=== PATIENT | female | born 1980 | race African-American/Black ===

== ENCOUNTER 2018-04-28 13:19 | Emergency (ER) | payer OTHER ==
--- NOTE | 2018-04-28 13:37 | ED Physician Documentation ---
History of Present Illness - Stated complaint Stated Complaint: BLEEDING/6WKS - Chief complaint Chief Complaint: Abd Pain - History obtained from History obtained from: Patient, Family - History of Present Illness Timing: How many days ago (several) Pain level max: 0 Pain level now: 0 Improved by: nothing Worsened by: nothing - Additonal information Additional information: Patient is a 4, para 1 who states that she is approximately 6 weeks . Noticed she started vaginally bleeding over the past several days. States heavier today. 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 - Present Medications Home Medications: Ambulatory Orders Medication Instructions Recorded Confirmed Pnv No.122/Iron/Folic Acid 04/28/18 [ Multi Tablet] - Allergies Allergies/Adverse Reactions: Allergies Allergy/AdvReac Type Severity Reaction Status Date / Time No Known Drug Allergies Allergy Verified 04/28/18 13:28 - Living Situation Living Situation: reports: With family Living Arrangement: reports: At home - Social History Does the pt smoke?: No Smoking Status: Never smoker Does the pt have substance abuse?: No PD ED PE NORMAL - Vitals Vital signs reviewed: Yes - General General: Alert and oriented X 3, No acute distress - HEENT HEENT: Moist mucous membranes - Neck Neck: Supple, no meningeal sign - Cardiac Cardiac: RRR, Strong equal pulses - Respiratory Respiratory: No respiratory distress, Clear bilaterally - Abdomen Abdomen: Soft, Non tender, Non distended - Female Female : Pt declined - Back Back: No CVA TTP - Derm Derm: Warm and dry - Neuro Neuro: Alert and oriented X 3 - Psych Psych: Normal mood, Normal affect Results - Vitals Vitals: Vital Signs - 24 hr 04/28/18 04/28/18 13:26 15:36 Temperature 36.8 C 36.9 C Heart Rate 96 94 Respiratory 18 18 Rate Blood Pressure 134/73 H 132/75 H O2 Saturation 100 100 Oxygen O2 Source Room air - Labs Labs: Laboratory Tests 04/28/18 04/28/18 04/28/18 13:40 14:21 14:21 WBC 6.8 RBC 4.60 Hgb 12.9 Hct 38.6 MCV 83.7 MCH 28.0 MCHC 33.4 RDW 13.2 Plt Count 234 MPV 7.5 L Neut # (Auto) 4.4 Lymph # (Auto) 1.6 Dickens # (Auto) 0.3 Eos # (Auto) 0.4 Baso # (Auto) 0.0 Absolute Nucleated RBC 0.00 Nucleated RBC % 0.0 Sodium Potassium Chloride Carbon Dioxide Anion Gap BUN Creatinine Estimated GFR (MDRD) Glucose Calcium Total Bilirubin AST ALT Alkaline Phosphatase Total Protein Albumin Globulin Albumin/Globulin Ratio Lipase HCG, Quant Urine Color YELLOW Urine Clarity CLEAR Urine pH 6.0 Ur Specific [place] 1.025 Urine Protein NEGATIVE Urine Glucose (UA) NEGATIVE Urine Ketones NEGATIVE Urine Occult Blood SMALL H Urine Nitrite NEGATIVE Urine Bilirubin NEGATIVE Urine Urobilinogen 0.2 (NORMAL) Ur Leukocyte Esterase NEGATIVE Urine RBC 0-5 Urine WBC 0-3 Ur Squamous Epith Cells FEW Squamous Urine Bacteria Rare Ur Microscopic Review INDICATED Urine Culture Comments NOT INDICATED Blood Type B POSITIVE Antibody Screen NEGATIVE 04/28/18 04/28/18 14:21 14:21 WBC RBC Hgb Hct MCV MCH MCHC RDW Plt Count MPV Neut # (Auto) Lymph # (Auto) Dickens # (Auto) Eos # (Auto) Baso # (Auto) Absolute Nucleated RBC Nucleated RBC % Sodium 131 L Potassium 3.8 Chloride 98 L Carbon Dioxide 25 Anion Gap 8.0 BUN 11 Creatinine 0.5 Estimated GFR (MDRD) 170 Glucose 106 H Calcium 9.7 Total Bilirubin 0.5 AST 13 ALT 10 Alkaline Phosphatase 63 Total Protein 7.8 Albumin 4.1 Globulin 3.7 Albumin/Globulin Ratio 1.1 Lipase 31 HCG, Quant 238152.00 Urine Color Urine Clarity Urine pH Ur Specific [place] Urine Protein Urine Glucose (UA) Urine Ketones Urine Occult Blood Urine Nitrite Urine Bilirubin Urine Urobilinogen Ur Leukocyte Esterase Urine RBC Urine WBC Ur Squamous Epith Cells Urine Bacteria Ur Microscopic Review Urine Culture Comments Blood Type Antibody Screen - Rads (name of study) pelvic US Radiology: Prelim report reviewed, EMP read contemporaneously, See rad report ( Intrauterine with a estimated gestational age of 6 weeks and 4 days. heart rate of 122 bpm. Fibroid in the uterine fundus.) PD MEDICAL DECISION MAKING - ED course Complexity details: reviewed results, re-evaluated patient, considered differential, d/w patient, d/w family ED course: Patient is a 37-year-old female who presents to the emergency department with what appears to be a threatened . She does have an intrauterine with a heart rate of approximately 122 bpm. HCG is appropriate. We will have her follow-up with her doctor for further care. She is well-appearing, nontoxic. Afebrile. Patient counseled regarding signs and symptoms for which I believe and urgent re-evaluation would be necessary. Patient with good understanding of and agreement to plan and is comfortable going home at this time This document was made in part using voice recognition software. While efforts are made to proofread this document, sound alike and grammatical errors may occur. Departure - Departure Disposition: 01 Home, Self Care Clinical Impression: Threatened affecting intrauterine Condition: Good Instructions: ED Miscarriage Poss Follow-Up: Provider,Other [Primary Care Provider] - Within 1 week Comments: Your ultrasound shows a single intrauterine that is approximately 6 weeks and 4 days old by crown-rump length. The heart rate is approximately 122 bpm. Your hCG is also normal for this stage in . Please follow-up with your doctor for further evaluation. They may want to repeat an hCG in 3 days if you are still having bleeding. Return if you worsen. Discharge Date/Time: 04/28/18 15:37
[2018-04-28 13:53] LABS: BILIRUBIN,URINE NEGATIVE (NEGATIVE); GLUCOSE, URINE (UA) NEGATIVE (NEGATIVE); KETONES,URINE (UA) NEGATIVE (NEGATIVE); LEUKOCYTE ESTERASE, URINE NEGATIVE (NEGATIVE); NITRITE,URINE NEGATIVE (NEGATIVE); OCCULT BLOOD,URINE SMALL (NEGATIVE); PROTEIN,URINE NEGATIVE (NEGATIVE); UROBILINOGEN,URINE 0.2 (NORMAL) E.U./dL (NORMAL)
[2018-04-28 13:54] LABS: CLARITY,URINE CLEAR (CLEAR)
[2018-04-28 13:57] LABS: BACTERIA,URINE Rare /HPF (None Seen); RBC,URINE 0-5 /HPF (0-5); SQUAMOUS EPITHELIAL CELL,UR FEW Squamous (<= Few)
[2018-04-28 14:32] LABS: BASOPHILS % (AUTO) 0.3 %; EOSINOPHILS # (AUTO) 0.4 10^3/uL (0.0-0.7); EOSINOPHILS % (AUTO) 6.1 %; HGB - HEMOGLOBIN 12.9 g/dL (12.0-16.0); LYMPHOCYTES # (AUTO) 1.6 10^3/uL (1.5-3.5); MEAN CORPUSCULAR HGB CONC 33.4 g/dL (32.0-36.0); MEAN CORPUSCULAR VOLUME 83.7 fL (81.0-99.0); MEAN PLATELET VOLUME 7.5 fL (7.9-10.8); MONOCYTES # (AUTO) 0.3 10^3/uL (0.0-1.0); MONOCYTES % (AUTO) 3.9 %; NEUTROPHILS # (AUTO) 4.4 10^3/uL (1.5-6.6); NEUTROPHILS % (AUTO) 65.7 %; PLT - PLATELET COUNT 234 10^3/uL (130-450); RED CELL DISTRIBUTION WIDTH 13.2 % (12.0-15.0); WHITE BLOOD COUNT 6.8 x10^3/uL (4.8-10.8)
[2018-04-28 14:47] LABS: ALBUMIN 4.1 g/dL (3.2-5.5); ALBUMIN/GLOBULIN RATIO 1.1 (1.0-2.2); BILIRUBIN,TOTAL 0.5 mg/dL (0.2-1.0); CALCIUM 9.7 mg/dL (8.5-10.3); CREATININE 0.5 mg/dL (0.4-1.0); TOTAL PROTEIN 7.8 g/dL (6.7-8.2)
[2018-04-28 15:37] VITALS: BP 132/75
--- NOTE | 2018-04-30 14:47 | Ultrasound Report ---
OB ULTRASOUND: 04/28/2018 CLINICAL INDICATION: Six weeks , spotting. TECHNIQUE: Real-time scanning was performed using the transabdominal and transvaginal technique with kiosk sales representative static images obtained. LAST MENSTRUAL PERIOD: 03/14/2018 Clinical Age: 6 weeks 3 days (LMP) US Age: 6 weeks 4 days EFW Hadlock: -- EFW% Hadlock: -- Heart Rate: 122 bpm EDC: 12/19/2018 (LMP) US EDC: 12/18/2018 (current ultrasound) BPD Hadlock: -- HC Hadlock: -- AC Hadlock: -- FL Hadlock: -- Presentation: -- Placental Location: -- Cervical Length: closed Amniotic Fluid: -- FINDINGS There is a gestational sac in the endometrium, with yolk sac and pole visualized. By crown rump length, the fetus dates 6 weeks 4 days (6 weeks 3 days by LMP). The gestational sac appears regular. No perigestational hemorrhage is identified. The placenta is not visualized due to early dates. There is a right fundal leiomyoma in the uterus, measuring 3.4 x 2.9 x 2.9 cm. The ovaries are normal, with the right measuring 3.5 x 1.9 x 1.6 cm, and the left measuring 3.8 x 2.2 x 1.8 cm. A small amount of free fluid is present. IMPRESSION: SINGLE VIABLE INTRAUTERINE GESTATION, WITH SIZE IN KEEPING WITH LMP DATING. NO PERIGESTATIONAL HEMORRHAGE. SMALL AMOUNT OF FREE FLUID. RIGHT FUNDAL UTERINE LEIOMYOMA. TD: 04/28/2018 15:30 [facility]
== END 2018-04-28 15:37 | disposition home or self-care (01) ==
LOC: ED 13:19
DX: O20.0 Threatened abortion (principal); D25.9 Leiomyoma of uterus, unspecified; Z3A.01 Less than 8 weeks gestation of pregnancy
CPT/HCPCS: 36415; 76801; 76817; 76830; 80053; 81001; 81003; 83690; 84702; 85025; 86850; 86900; 86901; 87086; 99283

== ENCOUNTER 2019-04-30 08:22 | Emergency (ER) | payer OTHER ==
[2019-04-30 08:47] LABS: BILIRUBIN,URINE NEGATIVE (NEGATIVE); GLUCOSE, URINE (UA) NEGATIVE (NEGATIVE); KETONES,URINE (UA) NEGATIVE (NEGATIVE); LEUKOCYTE ESTERASE, URINE NEGATIVE (NEGATIVE); NITRITE,URINE NEGATIVE (NEGATIVE); OCCULT BLOOD,URINE MODERATE (NEGATIVE); PROTEIN,URINE 30 mg/dL (NEGATIVE); UROBILINOGEN,URINE 0.2 (NORMAL) E.U./dL (NORMAL)
[2019-04-30] MEDS ORDERED: IBUPROFEN 600 MG TABLET PO STA (08:48)
[2019-04-30 08:54] LABS: CLARITY,URINE CLEAR (CLEAR)
[2019-04-30 08:57] LABS: HCG UR QUAL NEGATIVE
[2019-04-30 09:05] LABS: BACTERIA,URINE Few /HPF (None Seen); SQUAMOUS EPITHELIAL CELL,UR FEW Squamous (<= Few)
[2019-04-30 09:17] LABS: CALCIUM 9.5 mg/dL (8.5-10.3); CREATININE 0.8 mg/dL (0.4-1.0)
--- NOTE | 2019-04-30 09:57 | ED Physician Documentation ---
PD HPI ABD PAIN - Stated complaint Stated Complaint: BACK PAIN - Chief complaint Chief Complaint: Abd Pain - History obtained from History obtained from: Patient - History of Present Illness Timing - duration: Days (2) Timing - details: Abrupt onset Pain level max: 5 Quality: Aching, Sharp, Stabbing Location: Other (left flank radiating to L groin) Radiation: (left groin), Left flank Associated symptoms: Hematuria. No: Fever, Nausea, Vomiting, Hematemesis, Diarrhea, Dysuria, Near syncope / syncope, Loss of appetite, Vaginal bleeding, Vaginal dc Similar symptoms before: Has not had sx before Recently seen: Not recently seen - Treatment prior to arrival Treatment prior to arrival: none Review of Systems Constitutional: denies: Fever, Chills Cardiac: denies: Chest pain / pressure Respiratory: denies: Dyspnea GI: reports: Abdominal Pain, Nausea. denies: Vomiting : reports: Hesitancy, Hematuria. denies: Dysuria, Frequency, Discharge Skin: denies: Rash Musculoskeletal: reports: Back pain Neurologic: denies: Generalized weakness, Focal weakness, Numbness PD PAST MEDICAL HISTORY - Past Medical History Past Medical History: Yes FLYER BUILDER: Endometriosis - Past Surgical History Past Surgical History: No /FLYER BUILDER: section - Present Medications Home Medications: Ambulatory Orders Medication Instructions Recorded Confirmed Pnv No.122/Iron/Folic Acid 04/28/18 [ Multi Tablet] Oxycodone HCl/Acetaminophen 1 - 2 each PO Q6H PRN #14 tablet 04/30/19 [Percocet 5-325 mg Tablet] - Allergies Allergies/Adverse Reactions: Allergies Allergy/AdvReac Type Severity Reaction Status Date / Time No Known Drug Allergies Allergy Verified 04/28/18 13:28 - Social History Does the pt smoke?: No Smoking Status: Never smoker Does the pt drink ETOH?: No Does the pt have substance abuse?: No - Immunizations Immunizations are current?: Yes PD ED PE NORMAL - Vitals Vital signs reviewed: Yes - General General: Alert and oriented X 3 - HEENT HEENT: Atraumatic - Neck Neck: Supple, no meningeal sign - Cardiac Cardiac: RRR, No murmur - Respiratory Respiratory: No respiratory distress - Abdomen Abdomen: Normal bowel sounds, Soft, Non tender, Non distended - Female Female : Deferred - Rectal Rectal: Deferred - Back Back: Other (mild L cva tenderness) - Derm Derm: Normal color, Warm and dry, No rash - Extremities Extremities: No deformity - Neuro Neuro: Alert and oriented X 3 Eye Opening: Spontaneous Motor: Obeys Commands Verbal: Oriented GCS Score: 15 - Psych Psych: Normal mood, Normal affect PD ED PE EXPANDED - Abdomen Abdomen: No: Distended, Tender to palpation, Rebound, Guarding Results - Vitals Vitals: Vital Signs - 24 hr 04/30/19 04/30/19 08:30 10:13 Temperature 35.7 C L Heart Rate 76 Respiratory 18 16 Rate Blood Pressure 131/91 H O2 Saturation 98 Oxygen O2 Source Room air - Labs Labs: Microbiology 04/30/19 08:31 Urine Culture - Final Urine,Clean Catch NO AEROBIC GROWTH AT 24 HOURS Laboratory Tests 04/30/19 04/30/19 08:31 08:58 Sodium 140 Potassium 3.5 Chloride 105 Carbon Dioxide 25 Anion Gap 10.0 BUN 12 Creatinine 0.8 Estimated GFR (MDRD) 98 Glucose 98 Calcium 9.5 Urine Color YELLOW Urine Clarity CLEAR Urine pH 6.0 Ur Specific [place] 1.020 Urine Protein 30 H Urine Glucose (UA) NEGATIVE Urine Ketones NEGATIVE Urine Occult Blood MODERATE H Urine Nitrite NEGATIVE Urine Bilirubin NEGATIVE Urine Urobilinogen 0.2 (NORMAL) Ur Leukocyte Esterase NEGATIVE Urine RBC 11-25 H Urine WBC 6-10 H Ur Squamous Epith Cells FEW Squamous Urine Bacteria Few Ur Microscopic Review INDICATED Urine Culture Comments INDICATED Urine HCG, Qual NEGATIVE normal renal function, blood in urine, no UTI Procedures - Bedside sono Bedside sono by EMP: Bilateral renal ultrasounds show L sided mild hydronephrosis. Normal R kidney. PD MEDICAL DECISION MAKING - ED course Complexity details: reviewed results, re-evaluated patient, considered di fferential, d/w patient ED course: ddx - UTI, pyelonephritis, AAA, kidney stone. 38 y/o F with acute onset of L flank pain radiating to the L groin with hematuria. No UTI here. US confirmed mild hydronephrosis and UA with blood. This is clinically consistent with a stone. However pt's pain controlled with ibuprofen and she is healthy and stable for discharge and outpt f/u. Given return precautions if new cocerning or worsening symptoms. Departure - Departure Disposition: 01 Home, Self Care Clinical Impression: Kidney stone on left side Condition: Stable Instructions: ED Stone Renal W Colic Follow-Up: Mary Redman MD [Provider Admit Priv/Credential] - (within 1 to 2 weeks to recheck your symptoms) Prescriptions: Oxycodone HCl/Acetaminophen [Percocet 5-325 mg Tablet] 1 - 2 each PO Q6H PRN #14 tablet PRN Reason: pain Print Language: [place]an Comments: Your kidney function was normal here. your labs and urine sample were normal except for blood in your urine suggestive of a kidney stone. You have mild hydronephrosis of your left kidney on Ultrasound also consistent with a kidney stone. You can taken tylenol or ibuprofen for pain and percocet if pain is severe. Return to the ED if worsening symptoms, fever, or pain. Discharge Date/Time: 04/30/19 10:15
[2019-04-30 10:15] VITALS: BP 131/91
== END 2019-04-30 10:15 | disposition home or self-care (01) ==
LOC: ED 08:22
DX: N13.2 Hydronephrosis with renal and ureteral calculous obstruction (principal)
CPT/HCPCS: 36415; 80048; 81001; 81025; 87086; 99283; 99284; A9270; 81003

== ENCOUNTER 2019-05-24 09:02 | Emergency (ER) | payer OTHER ==
--- NOTE | 2019-05-24 09:20 | ED Physician Documentation ---
History of Present Illness - Stated complaint Stated Complaint: SIDE PX - Chief complaint Chief Complaint: General - History obtained from History obtained from: Patient - Additonal information Additional information: Patient is a previously healthy 39-year-old female presenting with persistent bilateral flank pain that does not radiate, but is associated with inability to fully empty bladder, hematuria, dysuria. Patient was seen several weeks ago and told that she may have a kidney stone as evidenced by ultrasound. Patient was followed up with her primary care physician and tried [id number] medications without much improvement or relief. Patient denies other abdominal pain, nausea, vomiting, fever, but does admit to diarrhea. Patient denies possibility of . No other vaginal complaints. No improving or worsening factors noted. Review of Systems Constitutional: denies: Fever GI: reports: Diarrhea. denies: Abdominal Pain, Nausea, Vomiting : reports: Dysuria, Hesitancy, Hematuria. 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 - Present Medications Home Medications: Ambulatory Orders Medication Instructions Recorded Confirmed Pnv No.122/Iron/Folic Acid 04/28/18 [ Multi Tablet] Oxycodone HCl/Acetaminophen 1 - 2 each PO Q6H PRN #14 tablet 04/30/19 [Percocet 5-325 mg Tablet] Ciprofloxacin HCl [Cipro] 500 mg PO BID 7 Days tablet 05/24/19 - Allergies Allergies/Adverse Reactions: Allergies Allergy/AdvReac Type Severity Reaction Status Date / Time No Known Drug Allergies Allergy Verified 05/24/19 09:12 - Social History Does the pt smoke?: No Smoking Status: Never smoker Does the pt drink ETOH?: No Does the pt have substance abuse?: No - Immunizations Immunizations are current?: Yes PD ED PE NORMAL - Vitals Vital signs reviewed: Yes - General General: Alert and oriented X 3, No acute distress, Well developed/nourished - HEENT HEENT: Atraumatic, Moist mucous membranes - Neck Neck: Supple, no meningeal sign - Cardiac Cardiac: RRR, No murmur, No gallop - Respiratory Respiratory: No respiratory distress, Clear bilaterally - Abdomen Abdomen: Soft, Non tender, Non distended - Back Back: No: No CVA TTP (Extremely mild b/l CVA tenderness) - Derm Derm: Normal color, Warm and dry, No rash - Extremities Extremities: No deformity, No tenderness to palpate - Neuro Neuro: Alert and oriented X 3, No motor deficit, No sensory deficit - Psych Psych: Normal mood, Normal affect Results - Vitals Vitals: Vital Signs - 24 hr 05/24/19 05/24/19 09:10 09:38 Temperature 36.6 C Heart Rate 86 76 Respiratory 14 18 Rate Blood Pressure 135/90 H 121/84 H O2 Saturation 100 100 Oxygen O2 Source Room air - Labs Labs: Laboratory Tests 05/24/19 05/24/19 05/24/19 09:20 09:43 09:43 WBC 4.7 L RBC 4.76 Hgb 13.1 Hct 41.4 MCV 87.0 MCH 27.5 MCHC 31.6 L RDW 13.2 Plt Count 280 MPV 9.3 Neut # (Auto) 2.8 Lymph # (Auto) 1.3 L Wirt # (Auto) 0.2 Eos # (Auto) 0.3 Baso # (Auto) 0.0 Absolute Nucleated RBC 0.00 Nucleated RBC % 0.0 Sodium 139 Potassium 3.7 Chloride 105 Carbon Dioxide 26 Anion Gap 8.0 BUN 11 Creatinine 0.5 Estimated GFR (MDRD) 168 Glucose 94 Calcium 9.6 Total Bilirubin 0.6 AST < 10 L ALT 10 Alkaline Phosphatase 76 Total Protein 7.7 Albumin 4.1 Globulin 3.6 Albumin/Globulin Ratio 1.1 Lipase 33 Urine Color YELLOW Urine Clarity SL Urine pH 7.0 Ur Specific [place] 1.020 Urine Protein 30 H Urine Glucose (UA) NEGATIVE Urine Ketones NEGATIVE Urine Occult Blood LARGE H Urine Nitrite NEGATIVE Urine Bilirubin NEGATIVE Urine Urobilinogen 1 (NORMAL) Ur Leukocyte Esterase MODERATE H Urine RBC 11-25 H Urine WBC >25 H Urine WBC Clumps PRESENT Ur Squamous Epith Cells FEW Squamous Urine Bacteria Moderate H Ur Microscopic Review INDICATED Urine Culture Comments INDICATED Urine HCG, Qual NEGATIVE PD MEDICAL DECISION MAKING - ED course Complexity details: reviewed old records, reviewed results, re-evaluated patient, considered differential, d/w patient ED course: Patient presenting with bilateral flank pain associated with UTI symptoms. Do have concern for possible UTI, pyelonephritis, nephrolithiasis, particularly given patient's report of mild hydronephrosisOn ultrasound several weeks ago. Patient denies other abdominal symptoms and have low suspicion for other complications including appendicitis, pancreatitis,, AAA small bowel obstruction, diverticulitis, or other pelvic complaints, but considered.Patient declined IV placement and otherwise not require medications while in the ED. Screening lab work returned relatively unremarkable. However, urinalysis indicated presence of infection and blood. CT abdomen/pelvis obtained did not find evidence of obstruction or significant nephrolithiasis, but had incidental finding of irregularly placed IUD. Discussed this incidental finding with patient and recommended follow-up with her GLOVE STITCHER and also warned her of the possibility of lack of contraception because of its abnormal location. Also discussed other results and recommendations including use of antibiotics for possible pyelonephritis given UTI findings and flank pain.Also discussed return precautions and other appropriate follow-up. Patient voiced understanding and is comfortable with discharge plan. Departure - Departure Disposition: 01 Home, Self Care Clinical Impression: Pyelonephritis Condition: Good Instructions: ED Kidney Infec Female Follow-Up: Provider,Other [Primary Care Provider] - Within 3 Days Prescriptions: Ciprofloxacin HCl [Cipro] 500 mg PO BID 7 Days tablet Comments: Please take antibiotics as prescribed for likely bladder and kidney infection. Recommend taking with small amount of food to avoid upset stomach. Please follow-up with your primary care physician in next 2 to 3 days. Additionally, recommend additional contraception as IUD is in questionable position. Recommend follow-up with GLOVE STITCHER regarding this issue. Return to ED sooner if experience worsening symptoms or have other concerns.
[2019-05-24 09:31] LABS: BILIRUBIN,URINE NEGATIVE (NEGATIVE); GLUCOSE, URINE (UA) NEGATIVE (NEGATIVE); KETONES,URINE (UA) NEGATIVE (NEGATIVE); LEUKOCYTE ESTERASE, URINE MODERATE (NEGATIVE); NITRITE,URINE NEGATIVE (NEGATIVE); OCCULT BLOOD,URINE LARGE (NEGATIVE); PROTEIN,URINE 30 mg/dL (NEGATIVE); UROBILINOGEN,URINE 1 (NORMAL) E.U./dL (NORMAL)
[2019-05-24 09:34] LABS: CLARITY,URINE SL (CLEAR); HCG UR QUAL NEGATIVE
[2019-05-24] MEDS ORDERED: SODIUM CHLORIDE 0.9% 1,000 ML IV ONE (09:34)
[2019-05-24 09:40] VITALS: BP 121/84
[2019-05-24 09:45] LABS: SQUAMOUS EPITHELIAL CELL,UR FEW Squamous (<= Few); WBC CLUMPS,URINE PRESENT
[2019-05-24 09:46] LABS: BACTERIA,URINE Moderate /HPF (None Seen)
[2019-05-24 09:51] LABS: BASOPHILS % (AUTO) 0.6 %; EOSINOPHILS # (AUTO) 0.3 10^3/uL (0.0-0.7); EOSINOPHILS % (AUTO) 7.3 %; HGB - HEMOGLOBIN 13.1 g/dL (12.0-16.0); LYMPHOCYTES # (AUTO) 1.3 10^3/uL (1.5-3.5); LYMPHOCYTES % (AUTO) 27.4 %; MEAN CORPUSCULAR HEMOGLOBIN 27.5 pg (27.0-31.0); MEAN CORPUSCULAR HGB CONC 31.6 g/dL (32.0-36.0); MEAN PLATELET VOLUME 9.3 fL (7.9-10.8); MONOCYTES # (AUTO) 0.2 10^3/uL (0.0-1.0); MONOCYTES % (AUTO) 4.7 %; NEUTROPHILS # (AUTO) 2.8 10^3/uL (1.5-6.6); NEUTROPHILS % (AUTO) 59.8 %; PLT - PLATELET COUNT 280 10^3/uL (130-450); RED BLOOD COUNT 4.76 10^6/uL (4.20-5.40); RED CELL DISTRIBUTION WIDTH 13.2 % (12.0-15.0); WHITE BLOOD COUNT 4.7 x10^3/uL (4.8-10.8)
[2019-05-24 10:08] LABS: ALBUMIN 4.1 g/dL (3.2-5.5); ALBUMIN/GLOBULIN RATIO 1.1 (1.0-2.2); ALKALINE PHOSPHATASE 76 IU/L (42-121); ALT ALANINE AMINOTRANSFERASE 10 IU/L (10-60); AST ASPARTATE AMINOTRANSFERASE < 10 IU/L (10-42); BILIRUBIN,TOTAL 0.6 mg/dL (0.2-1.0); BUN - BLOOD UREA NITROGEN 11 mg/dL (6-20); CALCIUM 9.6 mg/dL (8.5-10.3); CARBON DIOXIDE - CO2 26 mmol/L (21-32); CHLORIDE 105 mmol/L (101-111); CREATININE 0.5 mg/dL (0.4-1.0); GFR - MDRD 168 (>89); GLUCOSE 94 mg/dL (70-100); LIPASE 33 U/L (22-51); SODIUM 139 mmol/L (135-145); TOTAL PROTEIN 7.7 g/dL (6.7-8.2)
--- NOTE | 2019-05-24 10:29 | CT Report ---
Reason: B/L flank pain with UTI symptoms Procedure Date: 05/24/2019 Accession Number: [id number] / [id number] Procedure: CT - Abdomen/Pelvis WO CPT Code: FULL RESULT: EXAM: CT ABDOMEN AND PELVIS (CT KUB) EXAM DATE: 05/24/2019 09:56 AM. CLINICAL HISTORY: B/L flank pain with UTI symptoms. COMPARISONS: None. TECHNIQUE: Routine axial helical CT imaging was performed through the abdomen and pelvis without IV contrast. Reconstructions: Coronal and sagittal. In accordance with CT protocol optimization, one or more of the following dose reduction techniques were utilized for this exam: automated exposure control, adjustment of mA and/or KV based on patient size, or use of iterative reconstructive technique. FINDINGS: Lung Bases: Unremarkable. Right Kidney/Ureter: No stones, hydronephrosis, or hydroureter. No perinephric fat stranding. Mildly lobulated contour. Left Kidney/Ureter: No stones, hydronephrosis, or hydroureter. No perinephric fat stranding. Mildly lobulated contour. Other Solid Organs: Noncontrast images of the solid organs are grossly unremarkable. Gallbladder/Bile Ducts: Unremarkable. Peritoneal Cavity: No free fluid, free air or cleve adenopathy. Bowel is grossly unremarkable. Normal appendix inferior to cecum. Pelvic Organs: Abnormally low positioned IUD. Right IUD arm extends into posterior myometrium with tip of IUD arm near serosal surface of uterus. Vasculature: Unremarkable. Other: None. IMPRESSION: 1. No urinary tract stones or obstruction. 2. Abnormally low positioned IUD. Right IUD arm extends into posterior myometrium with tip of IUD arm near serosal surface of uterus. IUD may be at risk for further migration and reduced contraceptive effectiveness. 3. Normal appendix. [facility] The call report notification system was initiated by Dr. Homer Villareal at 10:25 AM on 05/24/2019. The above call report findings were discussed with Reshma Forrester by Dr. Homer Villraeal at 10:27 AM on 05/24/2019.
== END 2019-05-24 10:45 | disposition home or self-care (01) ==
LOC: ED 09:02
DX: N12 Tubulo-interstitial nephritis, not specified as acute or chronic (principal); T83.32XA Displacement of intrauterine contraceptive device, initial encounter; Y84.8 Other medical procedures as the cause of abnormal reaction of the patient, or of later complication, without mention of misadventure at the time of the procedure
CPT/HCPCS: 36415; 74176; 80053; 81001; 81003; 81025; 83690; 85025; 87086; 99283; 99284